=== PATIENT | male | born 2000 | race Caucasian/White ===

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

== ENCOUNTER 2018-06-01 16:02 | Emergency (ER) | payer OTHER ==
[~2018-06-01] VITALS: Ht 177.8 cm; Wt 96.7 kg
[~2018-06-01 16:02] MED LIST: BENTYL20 MG PO; ZOFRAN ODT4 MG PO
[2018-06-01] MEDS ORDERED: NORCO 5/3251 TABLET PO (17:38)
[2018-06-01 18:04] VITALS: BP 127/74
== END 2018-06-01 18:05 | disposition home or self-care (01) ==
LOC: EME 16:02
PROC: 2W3CX1Z Immobilization of Right Lower Arm using Splint (ICD-10-PCS; principal; 2018-06-01)
DX: S62.324A Displaced fracture of shaft of fourth metacarpal bone, right hand, initial encounter for closed fracture (principal); S62.326A Displaced fracture of shaft of fifth metacarpal bone, right hand, initial encounter for closed fracture; W22.8XXA Striking against or struck by other objects, initial encounter
CPT/HCPCS: 73130; 99281; 99283